=== PATIENT | male | born 2000 | race Hispanic/Latino ===

== ENCOUNTER 2022-02-07 10:45 | Emergency (ER) | payer OTHER ==
[~2022-02-07] VITALS: Ht 172.7 cm; Wt 63.5 kg
[2022-02-07] MEDS ORDERED: IBUPROFEN 600 MG TAB PO STA (11:06)
[2022-02-07] MEDS ORDERED: IBUPROFEN600 MG PO (12:24)
== END 2022-02-07 12:33 | disposition home or self-care (01) ==
LOC: ER 10:52
DX: S06.0X0A Concussion without loss of consciousness, initial encounter (principal); S40.011A Contusion of right shoulder, initial encounter; Y04.8XXA Assault by other bodily force, initial encounter; Y92.89 Other specified places as the place of occurrence of the external cause
CPT/HCPCS: 70450; 70486; 72125; 99284